=== PATIENT | male | born 1955 | race Caucasian/White ===

== ENCOUNTER 2020-01-11 19:47 | Emergency (ER) | payer BC ==
[2020-01-11] MEDS ORDERED: Cyclobenzaprine 10 MG Tab PO ONE (19:48)
[2020-01-11] MEDS ORDERED: Acetaminophen/HYDROcodone 325-5 MG Tab PO ONE (19:48)
[2020-01-11] MEDS ORDERED: Diphtheria,Pertussis(Acell),Tetanus Vaccine 0.5 ML SDV IM ONE (20:10)
[2020-01-11] MEDS ORDERED: Lidocaine 1% 30 ML SDV INJECT ONE (20:24)
[2020-01-11] MEDS ORDERED: Bacitracin Oint 1 GM U/D Packet TOP ONE (20:24)
--- NOTE | 2020-01-11 20:37 | CR ---
PROCEDURE INFORMATION: Exam: XR Left Finger(s) Exam date and time: 01/11/2020 8:01 PM Age: 64 years old Clinical indication: Pain; Finger(s); Left; Additional info: Laceration, fall TECHNIQUE: Imaging protocol: XR Left fingers. Views: Minimum 2 views. COMPARISON: No relevant prior studies available. FINDINGS: Bones/joints: The bones appear intact. No acute fracture is identified. The joints are normally aligned and articulated. Soft tissues: There is a laceration along the volar aspect of the digit extending along the length of the proximal phalanx to the PIP joint. There are tiny radiopaque foreign bodies along the distribution of the laceration. Additional tiny foreign bodies are seen overlying the soft tissues along the pad of the digit. IMPRESSION: Soft tissue laceration with associated small soft tissue foreign bodies. No acute osseous injury identified.
--- NOTE | 2020-01-11 20:43 | CT ---
PROCEDURE INFORMATION: Exam: CT Cervical Spine Without Contrast Exam date and time: 01/11/2020 8:15 PM Age: 64 years old Clinical indication: Injury or trauma; Fall; Initial encounter; Blunt trauma; Additional info: Fell backwards over retaining wall, upper neck manuel TECHNIQUE: Imaging protocol: Computed tomography images of the cervical spine without contrast. Radiation optimization: All CT scans at this facility use at least one of these dose optimization techniques: automated exposure control; mA and/or kV adjustment per patient size (includes targeted exams where dose is matched to clinical indication); or iterative reconstruction. COMPARISON: No relevant prior studies available. FINDINGS: Tubes, catheters and devices: A pacemaker device is present, and its leads are in appropriate position. Vertebrae: Cervical vertebral morphology and alignment is normal. There is no evidence of acute fracture, dislocation, or subluxation. The vertebral atlantoaxial joint is moderately degenerated. The vertebral facet joints demonstrate moderate degenerative hypertrophy and sclerosis. Discs/Spinal canal/Neural foramina: There is T2 signal loss and degenerative narrowing reflecting disc desiccation and degeneration at all cervical levels. There are small associated osteophytes in the mid and lower cervical levels. There is multilevel mid and lower cervical foraminal narrowing secondary to degenerated facets and uncovertebral osteophytes. Soft tissues: A tiny bubble of gas lies in the right temporal soft tissues, the remaining soft tissues appear normal. Lungs: The visualized portions of the lung apices are normal. Vasculature: There is moderate atherosclerotic calcification of the carotid arteries. IMPRESSION: 1. No sign of cervical injury 2. Diffuse cervical degenerative disc disease and facet osteoarthritis 3. Small (3 mm) bubble of soft tissue gas right temporal fossa,? Etiology
--- NOTE | 2020-01-11 20:48 | CT ---
PROCEDURE INFORMATION: Exam: CT Head Without Contrast Exam date and time: 01/11/2020 8:15 PM Age: 64 years old Clinical indication: Injury or trauma; Fall; Initial encounter; Blunt trauma (contusions or hematomas); Consciousness not specified; Additional info: Fell backwards over retaining wall TECHNIQUE: Imaging protocol: Computed tomography of the head without contrast. Radiation optimization: All CT scans at this facility use at least one of these dose optimization techniques: automated exposure control; mA and/or kV adjustment per patient size (includes targeted exams where dose is matched to clinical indication); or iterative reconstruction. COMPARISON: No relevant prior studies available. FINDINGS: Brain: Cerebral volume and morphology is normal. There are no extraaxial collections, mass effect or hemorrhage. Parenchymal attenuation is normal. Ventricles: Normal. No ventriculomegaly. Bones/joints: The skull is normal. Sinuses: The paranasal sinuses are morphologically normal and free of fluid or mucoperiosteal thickening. Mastoid air cells: The mastoid air cells and middle ears are normally pneumatized. Soft tissues: Small bubbles of gas lie in the soft tissues of the right temporal fossa. There is no sign of foreign body or skin laceration. IMPRESSION: 1. No acute cerebral /cranial abnormalities, no sign of traumatic injury. 2. Minimal right temporal soft tissue gas,? Etiology
[2020-01-11 20:54] LABS: SODIUM,NA 140 mmol/L (136-145)
[2020-01-11 21:04] LABS: ANION GAP 18.1 mEq/L (7-13); CHLORIDE,CL 103 mmol/L (98-107)
[2020-01-11] MEDS ORDERED: Cephalexin 500 MG Cap PO ONE (21:40)
--- NOTE | 2020-01-11 22:04 | EDM.PDOC ---
ED HPI GENERAL MEDICAL PROBLEM - General Chief Complaint: Trauma Stated Complaint: LACERATION ON FINGER Time Seen by Provider: 01/11/20 19:55 Source of Information: Reports: Patient History Limitations: Reports: No Limitations - History of Present Illness INITIAL COMMENTS - FREE TEXT/NARRATIVE: ED ambulatory with c/o laceration to left 4th finger, [employer]. Reports standing on 3rd step of ladder with electric nail gun, Nail got stuck pulling at gun, lost balance fell back wards, caught hand on bent nail, continued to fall backwards over 5 foot retaining wall, Did not lose consciousness. Paddle bat lying against wall "softened fall". No prior head injuries. Not on any type of blood thinner. GCS 15 on arrival. Location: Reports: Neck, Upper Extremity, Left, Lower Extremity, Right Left Finger-Little Pain Score (Numeric/FACES): 7 - Related Data Allergies Allergy/AdvReac Type Severity Reaction Status Date / Time No Known Allergies Allergy Verified 01/11/20 20:09 Home Meds: Home Meds Canagliflozin [Invokana] 300 mg PO DAILY 01/11/20 [History] Insulin Glargine,Hum.Rec.Anlog [Toujeo Solostar] 24 units SQ DAILY 01/11/20 [ History] Omeprazole 20 mg PO DAILY 01/11/20 [History] metFORMIN HCl [Metformin HCl ER] 500 mg PO BID 01/11/20 [History] Past Medical History Gastrointestinal History: Reports: GERD Musculoskeletal History: Reports: Fracture Other Musculoskeletal History: Ankle fx Endocrine/Metabolic History: Reports: Diabetes, Type II Social & Family History - Family History Family Medical History: Noncontributory - Tobacco Use Smoking Status *Q: Never Smoker Second Hand Smoke Exposure: No - Caffeine Use Caffeine Use: Reports: Coffee - Recreational Drug Use Recreational Drug Use: No Review of Systems - Review of Systems Review Of Systems: Comprehensive ROS is negative, except as noted in HPI. ED EXAM, GENERAL - Physical Exam Exam: See Below Exam Limited By: No Limitations General Appearance: Alert, Mild Distress Eye Exam: Bilateral Eye: EOMI, PERRL (4) Ears: Normal External Exam, Normal Canal, Hearing Grossly Normal, Normal TMs Nose: Normal Inspection Throat/Mouth: Normal Inspection Head: No: Facial Swelling, Facial Tenderness Neck: Tender Lateral (mid cercal), Tender Midline (upper) Respiratory/Chest: No Respiratory Distress, Lungs Clear, Normal Breath Sounds Cardiovascular: Normal Peripheral Pulses, Regular Rate, Rhythm, No Edema, No Murmur GI/Abdominal: Normal Bowel Sounds, Soft, Non-Tender. No: Distended, Guarding, Rigid Back Exam: Full Range of Motion, Other (7mm abrasion left medial mid scapula, non tender). No: CVA Tenderness (L), CVA Tenderness (R), Decreased Range of Motion, Paraspinal Tenderness, Vertebral Tenderness Neurological: Alert, Oriented, CN II-XII Intact, Normal Cognition, Normal Gait, No Motor/Sensory Deficits Psychiatric: Normal Affect, Normal Mood Skin Exam: Warm, Wound/Incision (4cm laceration left 5th finger palmar ) ED TRAUMA PROCEDURES - Laceration/Wound Repair Left Ventral Digit - 5th (Baby) Appearance: Superficial (deep), Stellate, Irregular, Mildly Contaminated Distal NVT: Neuro & Vascular Intact Anesthetic Type: Local Local Anesthesia - Lidocaine (Xylocaine): 1% Plain Local Anesthetic Volume: 3cc Skin Prep: Chlorhexidine (Hibiciens), Saline Saline Irrigation (cc's): 125 Exploration/Debridement/Repair: Wound Explored, Explored to Base, Moderate Debridement Closed With: Sutures Suture Size: 4-0 # of Sutures: 13 Suture Size: 4-0 # of Sutures: 1 Repaired With: Vicryl Drain Placement: No Sterile Dressing Applied: Nurse Tetanus Status Addressed: Yes Complications: No Course - Vital Signs Last Recorded V/S: Last Vital Signs Temp 96.5 F L 01/11/20 20:56 Pulse 80 01/11/20 22:15 Resp 14 01/11/20 22:15 BP 190/72 H 01/11/20 22:15 Pulse Ox 98 01/11/20 22:15 - Orders/Labs/Meds Orders: Active Orders 24 hr Category Date Time Status EKG Documentation Completion [RC] STAT Care 01/11/20 19:57 Active Vaccines to be Administered [RC] PER UNIT ROUTINE Care 01/11/20 20:10 Active Labs: Laboratory Tests 01/11/20 01/11/20 01/11/20 Range/Units 20:06 20:06 22:01 WBC 7.6 (5.0-10.0) 10^3/uL RBC 5.15 (4.6-6.2) 10^6/uL Hgb 15.9 (14.0-18.0) g/dL Hct 45.2 (40.0-54.0) % MCV 87.8 (80-100) fL MCH 30.9 (27.0-34.0) pg MCHC 35.2 H (33.0-35.0) g/dL Plt Count 142 L (150-450) 10^3/uL Neut % (Auto) 59.8 (42.2-75.2) % Lymph % (Auto) 29.4 (20.5-50.1) % [place] % (Auto) 7.9 (2-8) % Eos % (Auto) 2.6 (1.0-3.0) % Baso % (Auto) 0.3 (0.0-1.0) % Sodium 140 (136-145) mmol/L Potassium 4.1 (3.5-5.1) mmol/L Chloride 103 (98-107) mmol/L Carbon Dioxide 23 (21-32) mmol/L Anion Gap 18.1 H (7-13) mEq/L BUN 25 H (7-18) mg/dL Creatinine 1.30 (0.70-1.30) mg/dL Est Cr Clr Drug Dosing 59.27 mL/min Estimated GFR (MDRD) 56 BUN/Creatinine Ratio 19.2 (No establ ref range) Glucose 216 H (74-99) mg/dL Calcium 8.5 (8.5-10.1) mg/dL Total Bilirubin 0.5 (0.2-1.0) mg/dL AST 10 L (15-37) U/L ALT 30 (16-63) U/L Alkaline Phosphatase 73 (46-116) U/L Total Protein 6.9 (6.4-8.2) g/dL Albumin 3.9 (3.4-5.0) g/dL Globulin 3.0 Albumin/Globulin Ratio 1.3 Urine Color Yellow (YELLOW) Urine Appearance Slightly cloudy (CLEAR) Urine pH 6.5 (5.0-9.0) Ur Specific [place] 1.020 (1.005-1.030) Urine Protein Negative (NEGATIVE) Urine Glucose (UA) 500 H (NEGATIVE) Urine Ketones Negative (NEGATIVE) Urine Occult Blood Negative (NEGATIVE) Urine Nitrite Negative (NEGATIVE) Urine Bilirubin Negative (NEGATIVE) Urine Urobilinogen 0.2 (0.2-1.0) mg/dL Ur Leukocyte Esterase Negative (NEGATIVE) Urine RBC Not seen /HPF Urine WBC 0-5 (0-5/HPF) /HPF Ur Epithelial Cells Few (NOT SEEN) /HPF Amorphous Sediment Few (NOT SEEN) /HPF Urine Bacteria Rare (0-FEW/HPF) /HPF Urine Mucus Few H (NOT SEEN) /LPF Ethyl Alcohol < 3 (0) mg/dL Meds: Medications Discontinued Medications Generic Name Dose Route Start Last Admin Trade Name Tanner PRN Reason Stop Dose Admin Hydrocodone Bitart/Acetaminophen Confirm 01/11/20 22:08 01/11/20 22:19 [place] 325-5 Mg Administered 01/11/20 22:09 Not Given Dose 2 tab .ROUTE .STK-MED ONE Bacitracin 1 dose 01/11/20 20:24 01/11/20 20:36 Bacitracin Oint 1 Gm TOP 01/11/20 20:25 1 dose ONETIME ONE Administration Cephalexin 500 mg 01/11/20 21:40 01/11/20 21:46 Keflex PO 01/11/20 21:41 500 mg ONETIME ONE Administration Cyclobenzaprine HCl Confirm 01/11/20 22:08 01/11/20 22:18 Flexeril Administered 01/11/20 22:09 Not Given Dose 20 mg .ROUTE .STK-MED ONE Diphtheria/Tetanus/Acell Pertussis 0.5 ml 01/11/20 20:10 01/11/20 20:37 Adacel IM 01/11/20 20:11 0.5 ml .ONCE ONE Administration Lidocaine HCl 30 ml 01/11/20 20:24 01/11/20 20:37 Xylocaine-Mpf 1% INJECT 01/11/20 20:25 30 ml ONETIME ONE Administration - Re-Assessments/Exams Free Text/Narrative Re-Assessment/Exam: 20[address] C spine cleared by CT, C collar released, patient reported felt better with support. C collar left on for comfort. Remains alert talkative complete recall of incident. No c/o headache. Gcs 15. 01/12/20 03:42 Departure - Departure Time of Disposition: 21:59 Disposition: Home, Self-Care 01 Condition: Good Clinical Impression: Abrasion, right ankle, initial encounter Fall Qualifiers: Encounter type: initial encounter Qualified Code(s): W19.XXXA - Unspecified fall, initial encounter Contusion Qualifiers: Encounter type: initial encounter Contusion area: thoracic wall Contusion of thoracic wall detail: back wall of thorax Laterality: left Qualified Code(s): S20.222A - Contusion of left back wall of thorax, initial encounter Finger laceration Qualifiers: Encounter type: initial encounter Finger: little finger Damage to nail status: without damage Foreign body presence: without foreign body Laterality: left Qualified Code(s): S61.217A - Laceration without foreign body of left little finger without damage to nail, initial encounter - Discharge Information *PRESCRIPTION DRUG MONITORING PROGRAM REVIEWED*: No *COPY OF PRESCRIPTION DRUG MONITORING REPORT IN PATIENT KAYLI: No Instructions: Head Injury, Adult, Laceration Care, Adult, Sutured Wound Care, [id number] Forms: ED Department Discharge Additional Instructions: tylenol 650mg every 4 hours as needed for omoderate discomfort hydrocodone 5/325 one every 6 hours as needed for severe discomfort keflex 500mg one three times daily for one week flexeril 10mg one- half to one every 8 hours as needed for spasm clinic recheck on Saturday elevate hand keep clean and dry, wash with soap and water twice daily head injury instructions urgent follow up and confusion or weakness or change in behavior. Sepsis Event Note - Evaluation Sepsis Screening Result: No Definite Risk - Focused Exam Vital Signs: Vital Signs Temp Pulse Resp BP Pulse Ox 01/11/20 22:15 80 14 190/72 H 98 01/11/20 21:34 74 14 161/66 H 97 01/11/20 20:56 96.5 F L 91 14 159/64 H 97 01/11/20 19:53 96.9 F 70 16 104/52 L 98 Date Exam was Performed: 01/12/20 Time Exam was Performed: 03:21 - My Orders Last 24 Hours: My Active Orders 01/11/20 19:57 EKG Documentation Completion [RC] STAT 01/11/20 20:10 Vaccines to be Administered [RC] PER UNIT ROUTINE - Assessment/Plan Last 24 Hours: My Active Orders 01/11/20 19:57 EKG Documentation Completion [RC] STAT 01/11/20 20:10 Vaccines to be Administered [RC] PER UNIT ROUTINE
[2020-01-11] MEDS ORDERED: Acetaminophen/HYDROcodone 325-5 MG Tab ONE (22:08)
[2020-01-11] MEDS ORDERED: Cyclobenzaprine 10 MG Tab ONE (22:08)
== END 2020-01-11 22:22 | disposition home or self-care (01) ==
LOC: DL.ED 19:47
DX: S61.217A Laceration without foreign body of left little finger without damage to nail, initial encounter (principal); S20.222A Contusion of left back wall of thorax, initial encounter; S90.511A Abrasion, right ankle, initial encounter; K21.9 Gastro-esophageal reflux disease without esophagitis; E11.9 Type 2 diabetes mellitus without complications; Z79.4 Long term (current) use of insulin; Z79.899 Other long term (current) drug therapy; Z23 Encounter for immunization; W29.4XXA Contact with nail gun, initial encounter
CPT/HCPCS: 12002; 36415; 70450; 72125; 73140; 80053; 80307; 81001; 85025; 90471; 90715; 93005; 99284; A9270; J2001

== ENCOUNTER 2020-08-15 17:36 | Emergency (ER) | payer MEDICARE, BC ==
[2020-08-15] MEDS ORDERED: Sodium Chloride 0.9% 10 ML Syringe FLUSH PRN (17:39)
[2020-08-15] MEDS ORDERED: Aspirin 81 MG Tab.Chew PO ONE (17:41)
--- NOTE | 2020-08-15 17:42 | EDM.PDOC ---
<Darío Powers - Last Filed: 08/15/20 19:04> ED HPI GENERAL MEDICAL PROBLEM - General Chief Complaint: Chest Pain Stated Complaint: TROUBLE BREATHING, BOTH ARMS ACHING Time Seen by Provider: 08/15/20 17:42 Source of Information: Reports: Patient, RN, RN Notes Reviewed History Limitations: Reports: No Limitations - History of Present Illness INITIAL COMMENTS - FREE TEXT/NARRATIVE: 65 y/o M c/o Cp since 3 pm today. Pt had just had luch with his when pain began. Pain is center chest, pressure in nature, 7/10 and non radiating. Pt also experiencing bilateral heaviness in upper arms. Hx of type II diabetes. No previous heart issues. Pt took two baby aspirin before coming to hospital. Denies hull, vision problems, sob, n/v, abd pn, difficulty voiding, extremity pain, fever, cough, chills, drugs, etoh. 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) Anterior Chest Pain Score (Numeric/FACES): 8 - Related Data Allergies Allergy/AdvReac Type Severity Reaction Status Date / Time No Known Allergies Allergy Verified 08/15/20 18:19 Home Meds: Home Meds Canagliflozin [Invokana] 300 mg PO DAILY 01/11/20 [History] Insulin Glargine,Hum.Rec.Anlog [Touky[place] Solostar] 27 units SQ DAILY 01/11/20 [History] Omeprazole 20 mg PO DAILY 01/11/20 [History] metFORMIN HCl [Metformin HCl ER] 1,000 mg PO DAILY 01/11/20 [History] lisinopriL [Prinivil] 2.5 mg PO DAILY 08/15/20 [History] Past Medical History Gastrointestinal History: Reports: GERD Musculoskeletal History: Reports: Fracture Other Musculoskeletal History: Ankle fx Endocrine/Metabolic History: Reports: Diabetes, Type II Social & Family History - Family History Family Medical History: No Pertinent Family History - Caffeine Use Caffeine Use: Reports: Coffee - Living Situation & Occupation Living situation: Reports: with Significant Other ED ROS GENERAL - Review of Systems Review Of Systems: Comprehensive ROS is negative, except as noted in HPI. ED EXAM, GENERAL - Physical Exam Exam: See Below Exam Limited By: No Limitations General Appearance: Alert, WD/WN, No Apparent Distress, Anxious Eye Exam: Bilateral Eye: Normal Inspection Nose: Normal Inspection, Normal Mucosa, No Blood Throat/Mouth: Normal Inspection, Normal Lips, Normal Teeth, Normal Gums, Normal Oropharynx, Normal Voice, No Airway Compromise Head: Atraumatic, Normocephalic Neck: Normal Inspection, Supple, Non-Tender, Full Range of Motion Respiratory/Chest: No Respiratory Distress, Lungs Clear, Normal Breath Sounds, No Accessory Muscle Use, Chest Non-Tender Cardiovascular: Normal Peripheral Pulses, Regular Rate, Rhythm, No Edema, No Gallop, No JVD, No Murmur, No Rub GI/Abdominal: Normal Bowel Sounds, Soft, Non-Tender, No Organomegaly, No Distention, No Abnormal Bruit, No Mass (Male) Exam: Deferred Rectal (Males) Exam: Deferred Back Exam: Normal Inspection. No: CVA Tenderness (L), CVA Tenderness (R), Vertebral Tenderness Extremities: Normal Inspection, Non-Tender, No Pedal Edema Neurological: Alert, Oriented, CN II-XII Intact, Normal Cognition, Normal Gait, No Motor/Sensory Deficits Psychiatric: Normal Affect, Anxious Skin Exam: Warm, Dry, Intact, Normal Color, No Rash #1 Interpretation EKG Date: 08/15/20 Time: 17:50 Rhythm: Other (SR) Rate (Beats/Min): 84 Capac: Normal P-Wave: Present QRS: Other (LVH with secondary repol. abnrm.) ST-T: Normal QT: Normal Comparison: NA - No Prior EKG Course - Re-Assessments/Exams Free Text/Narrative Re-Assessment/Exam: 08/15/2020 18:35 Pt partially improved with NTG, no acute ischemic EKG changes, and negative Troponin. Plan to keep pt as extended ER for chest pain r/o. 08/15/20 19:00 Care of pt transferred to Braulio HERNANDEZ at shift change. Departure - Departure Disposition: DC/Tfer to [facility] 02 Clinical Impression: NSTEMI (non-ST elevated myocardial infarction), Elevated troponin I level Forms: Interfacility Transfer EMTALA Care Plan Goals: Discussed the patient's history, examination, initial lab/EKG results and repeat lab/EKG results with Dr. Watson. Dr. Watson accepted the patient for continued evaluation and management at [facility] in [place]. <Braulio Vance M - Last Filed: 08/15/20 23:20> Course - Vital Signs Last Recorded V/S: Last Vital Signs Temp 36.3 C 08/15/20 22:59 Pulse 55 L 08/15/20 22:59 Resp 16 08/15/20 22:59 BP 116/56 L 08/15/20 22:59 Pulse Ox 97 08/15/20 22:59 - Orders/Labs/Meds Orders: Active Orders 24 hr Category Date Time Status EKG 12 Lead [EKG Documentation Completion] [RC] ONETIME Care 08/15/20 22:00 Active EKG 12 Lead [EKG Documentation Completion] [RC] STAT Care 08/15/20 17:39 Active Peripheral IV Care [RC] . DIRECTED Care 08/15/20 17:39 Active CORONAVIRUS COVID-19 MICHAELA [MOLEC] Urgent Lab 08/15/20 23:04 Ordered Heparin Sodium/0.45% NaCl [Heparin 25,000 Units in 1/2 Med 08/15/20 23:12 Ordered NS 500 ML] 25,000 units in 500 ml IV ONETIME Nitroglycerin [Nitrostat] Med 08/15/20 17:42 Active 0.4 mg SL Q5M PRN Sodium Chloride 0.9% [Saline Flush] Med 08/15/20 17:39 Active 10 ml FLUSH ASDIRECTED PRN Peripheral IV Insertion Adult [OM.PC] Stat Oth 08/15/20 17:39 Ordered Medication Orders Heparin Sodium/Sodium Chloride (Heparin 25,000 Units In 1/2 Ns 500 Ml) 25,000 units in 500 mls @ 20.14 mls/hr IV ONETIME ONE Stop: 08/17/20 00:01 Nitroglycerin (Nitrostat) 0.4 mg SL Q5M PRN PRN Reason: Chest Pain Last Admin: 08/15/20 18:22 Dose: 0.4 mg Documented by: Admin: 08/15/20 18:09 Dose: 0.4 mg Documented by: Admin: 08/15/20 18:00 Dose: 0.4 mg Documented by: ELOISE Sodium Chloride (Saline Flush) 10 ml FLUSH ASDIRECTED PRN PRN Reason: Keep Vein Open Last Admin: 08/15/20 17:45 Dose: 10 ml Documented by: WARREN Labs: Laboratory Tests 08/15/20 08/15/20 08/15/20 Range/Units 17:45 17:45 17:45 WBC 7.8 (5.0-10.0) 10^3/uL RBC 5.14 (4.6-6.2) 10^6/uL Hgb 16.0 (14.0-18.0) g/dL Hct 44.7 (40.0-54.0) % MCV 87.0 (80-100) fL MCH 31.1 (27.0-34.0) pg MCHC 35.8 H (33.0-35.0) g/dL Plt Count 132 L (150-450) 10^3/uL Neut % (Auto) 72.9 (42.2-75.2) % Lymph % (Auto) 19.3 L (20.5-50.1) % [place] % (Auto) 6.1 (2-8) % Eos % (Auto) 1.3 (1.0-3.0) % Baso % (Auto) 0.4 (0.0-1.0) % PT 9.8 (9.0-12.0) SEC INR 1.0 (0.9-1.2) APTT 26.1 (22.0-34.0) SEC D-Dimer, Quantitative < 100 (0-400) ng/mL Sodium 138 (136-145) mmol/L Potassium 3.9 (3.5-5.1) mmol/L Chloride 100 (98-107) mmol/L Carbon Dioxide 23 (21-32) mmol/L Anion Gap 18.9 H (7-13) mEq/L BUN 21 H (7-18) mg/dL Creatinine 1.19 (0.70-1.30) mg/dL Est Cr Clr Drug Dosing TNP Estimated GFR (MDRD) > 60 BUN/Creatinine Ratio 17.6 (No establ ref range) Glucose 279 H (74-99) mg/dL Calcium 8.7 (8.5-10.1) mg/dL Total Bilirubin 0.5 (0.2-1.0) mg/dL AST 11 L (15-37) U/L ALT 31 (16-63) U/L Alkaline Phosphatase 65 (46-116) U/L Troponin I 0.021 (0.000-0.056) ng/mL B-Natriuretic Peptide 50 (0-100) pg/ml Total Protein 7.4 (6.4-8.2) g/dL Albumin 4.2 (3.4-5.0) g/dL Globulin 3.2 Albumin/Globulin Ratio 1.3 Amylase 40 (25-115) U/L Lipase 111 (73-393) U/L 08/15/20 Range/Units 22:26 WBC (5.0-10.0) 10^3/uL RBC (4.6-6.2) 10^6/uL Hgb (14.0-18.0) g/dL Hct (40.0-54.0) % MCV (80-100) fL MCH (27.0-34.0) pg MCHC (33.0-35.0) g/dL Plt Count (150-450) 10^3/uL Neut % (Auto) (42.2-75.2) % Lymph % (Auto) (20.5-50.1) % [place] % (Auto) (2-8) % Eos % (Auto) (1.0-3.0) % Baso % (Auto) (0.0-1.0) % PT (9.0-12.0) SEC INR (0.9-1.2) APTT (22.0-34.0) SEC D-Dimer, Quantitative (0-400) ng/mL Sodium (136-145) mmol/L Potassium (3.5-5.1) mmol/L Chloride (98-107) mmol/L Carbon Dioxide (21-32) mmol/L Anion Gap (7-13) mEq/L BUN (7-18) mg/dL Creatinine (0.70-1.30) mg/dL Est Cr Clr Drug Dosing Estimated GFR (MDRD) BUN/Creatinine Ratio (No establ ref range) Glucose (74-99) mg/dL Calcium (8.5-10.1) mg/dL Total Bilirubin (0.2-1.0) mg/dL AST (15-37) U/L ALT (16-63) U/L Alkaline Phosphatase (46-116) U/L Troponin I 0.540 H* (0.000-0.056) ng/mL B-Natriuretic Peptide (0-100) pg/ml Total Protein (6.4-8.2) g/dL Albumin (3.4-5.0) g/dL Globulin Albumin/Globulin Ratio Amylase (25-115) U/L Lipase (73-393) U/L Meds: Medications Generic Name Dose Route Start Last Admin Trade Name Freq PRN Reason Stop Dose Admin Heparin Sodium/Sodium Chloride 25,000 units in 500 mls @ 20.14 mls/hr 08/15/20 23:12 Heparin 25,000 Units In 1/2 Ns 500 Ml IV 08/17/20 00:01 ONETIME ONE 12 UNITS/KG/HR Nitroglycerin 0.4 mg 08/15/20 17:42 08/15/20 18:22 Nitrostat SL 0.4 mg Q5M PRN Administration Chest Pain Sodium Chloride 10 ml 08/15/20 17:39 08/15/20 17:45 Saline Flush FLUSH 10 ml ASDIRECTED PRN Administration Keep Vein Open Discontinued Medications Generic Name Dose Route Start Last Admin Trade Name Freq PRN Reason Stop Dose Admin Aspirin 162 mg 08/15/20 17:41 08/15/20 17:57 Aspirin PO 08/15/20 17:42 162 mg ONETIME ONE Administration Aspirin Confirm 08/15/20 17:58 08/15/20 18:05 Aspirin Administered 08/15/20 17:59 Not Given Dose 81 mg .ROUTE .STK-MED ONE Heparin Sodium (Porcine) 4,000 units 08/15/20 23:11 Heparin Sodium IVPUSH 08/15/20 23:12 .BOLUS ONE Departure - Departure Time of Disposition: 23:18 Reason for Transfer *Q: Other Condition: Fair Sepsis Event Note (ED) - Focused Exam Vital Signs: Vital Signs Temp Pulse Resp BP BP Pulse Ox 08/15/20 22:59 36.3 C 55 L 16 116/56 L 97 08/15/20 22:00 36.4 C 55 L 16 111/52 L 97 08/15/20 20:55 36.2 C 64 16 118/61 97 08/15/20 20:03 36.6 C 67 16 122/56 L 98 08/15/20 18:48 36.6 C 77 16 131/66 96 08/15/20 18:22 118/58 L 08/15/20 18:09 122/61 08/15/20 18:00 163/76 H 08/15/20 17:38 36.4 C 71 16 182/82 H 95 - My Orders Last 24 Hours: My Active Orders 08/15/20 23:04 CORONAVIRUS COVID-19 MICHAELA [MOLEC] Urgent 08/15/20 23:12 Heparin Sodium/0.45% NaCl [Heparin 25,000 Units in 1/2 NS 500 ML] 25,000 units in 500 ml IV ONETIME - Assessment/Plan Last 24 Hours: My Active Orders 08/15/20 23:04 CORONAVIRUS COVID-19 MICHAELA [MOLEC] Urgent 08/15/20 23:12 Heparin Sodium/0.45% NaCl [Heparin 25,000 Units in 1/2 NS 500 ML] 25,000 units in 500 ml IV ONETIME
[2020-08-15] MEDS ORDERED: Aspirin 81 MG Tab.Chew ONE (17:58)
[2020-08-15] MEDS: Nitroglycerin 0.4 MG Tab.SL SL PRN ×3 (18:00→18:22)
[2020-08-15 18:08] LABS: PTT,PARTIAL THROMBOPLSTIN TIME 26.1 SEC (22.0-34.0)
[2020-08-15 18:14] LABS: ANION GAP 18.9 mEq/L (7-13); CHLORIDE,CL 100 mmol/L (98-107); SODIUM,NA 138 mmol/L (136-145)
--- NOTE | 2020-08-15 18:41 | CR ---
PROCEDURE INFORMATION: Exam: XR Chest, 1 View Exam date and time: 08/15/2020 6:32 PM Age: 65 years old Clinical indication: Other: Chest pain TECHNIQUE: Imaging protocol: XR of the chest Views: 1 view. COMPARISON: No relevant prior studies available. FINDINGS: Lungs: Unremarkable. No consolidation. Mild left basilar atelectasis. Pleural space: Unremarkable. No pleural effusion. No pneumothorax. Heart/Mediastinum: Unremarkable. No cardiomegaly. Bones/joints: Unremarkable. IMPRESSION: Mild subsegmental atelectasis in the left base. Otherwise unremarkable chest
[2020-08-15] MEDS ORDERED: Heparin Sodium 5,000 Units/ML Vial IVPUSH ONE (23:11)
[2020-08-15] MEDS ORDERED: Heparin Sodium/0.45% NaCl 25,000 UNITS/500 ML BAG IV ONE (23:12)
== END 2020-08-16 00:18 ==
LOC: DL.ED 17:36
DX: I21.4 Non-ST elevation (NSTEMI) myocardial infarction (principal); R79.89 Other specified abnormal findings of blood chemistry; K21.9 Gastro-esophageal reflux disease without esophagitis; E11.9 Type 2 diabetes mellitus without complications; Z79.4 Long term (current) use of insulin; Z79.899 Other long term (current) drug therapy; Z20.822 Contact with and (suspected) exposure to COVID-19
CPT/HCPCS: 36415; 71045; 80053; 82150; 83690; 83880; 84484; 85025; 85379; 85610; 85730; 93005; 93010; 96365; 99285; A9270; J1644; U0002

== ENCOUNTER 2020-08-22 13:28 | Emergency (ER) | payer MEDICARE, BC ==
[2020-08-22 14:17] LABS: PTT,PARTIAL THROMBOPLSTIN TIME 26.8 SEC (22.0-34.0)
--- NOTE | 2020-08-22 14:22 | EDM.PDOC ---
<Ludmila Mckinney - Last Filed: 08/23/20 01:24> ED HPI GENERAL MEDICAL PROBLEM - General Stated Complaint: HEART SURGERY LAST SATURDAY DOESN'T FEEL RIGHT Time Seen by Provider: 08/22/20 14:05 - Related Data Allergies Allergy/AdvReac Type Severity Reaction Status Date / Time No Known Allergies Allergy Verified 08/15/20 18:19 Home Meds: Home Meds Canagliflozin [Invokana] 300 mg PO DAILY 01/11/20 [History] Insulin Glargine,Hum.Rec.Anlog [Toujeo Solostar] 27 units SQ DAILY 01/11/20 [History] Omeprazole 20 mg PO DAILY 01/11/20 [History] metFORMIN HCl [Metformin HCl ER] 1,000 mg PO DAILY 01/11/20 [History] Pravastatin Sodium [Pravachol] 20 mg PO DAILY 08/15/20 [History] lisinopriL [Prinivil] 2.5 mg PO DAILY 08/15/20 [History] Course - Re-Assessments/Exams Free Text/Narrative Re-Assessment/Exam: Troponin unchanged. No significant change in EKG. Continues to deny chest pain or SOB. Admits some anxiety when noticing skipped beat and on mccauley alone at its onset. Follow up with PCP on Saturday. Cardilogy in one month. Recommended sooner follow up with Cardio if able to reschedule. Departure - Departure Time of Disposition: 18:24 Disposition: Home, Self-Care 01 Condition: Good Clinical Impression: Palpitations - Discharge Information *PRESCRIPTION DRUG MONITORING PROGRAM REVIEWED*: No *COPY OF PRESCRIPTION DRUG MONITORING REPORT IN PATIENT KAYLI: No Instructions: Palpitations, [id number] Referrals: Cain Nguyễn NP [Primary Care Provider] - Forms: ED Department Discharge Additional Instructions: light activity clinic follow up this week cardiology follow up urgent follow up if chest pain shortness of breath, sweating continue home medications limit caffeine intake <Maria C Martin - Last Filed: 08/23/20 16:31> ED HPI GENERAL MEDICAL PROBLEM - General Source of Information: Reports: Patient, Old Records, RN, RN Notes Reviewed History Limitations: Reports: No Limitations - History of Present Illness INITIAL COMMENTS - FREE TEXT/NARRATIVE: Patient presents to the ED via personal vehicle with complaints of heart palpi tations. The patient reports he underwent a cardiac stent placement six days ago, 08/16/20, at [facility] in [place]. He states the procedure was without complication and he has been feeling well since discharge from the hospital on __. The patient states he was ice fishing this morning and felt "..off." He then noticed his heart "...felt like it was skipping a beat" after he sat down after lunch. He denies any syncopal events, vision changes, ches pain/pressure, shortness of breath, dyspepsia, nausea, vomiting, or diarrhea. He has not taken any PRN medications for this problem but does note he has started several new medications since discharge from the hospital. The patient denies tobacco or recreational drug use; he does attest to alcohol use with a last drink two days ago 08/20/20. Past Medical History HEENT History: Reports: None Cardiovascular History: Reports: Other (See Below) Other Cardiovascular History: NSTEMI last week (08/15/20) with stent Respiratory History: Reports: None Gastrointestinal History: Reports: GERD Genitourinary History: Reports: None Musculoskeletal History: Reports: Fracture Other Musculoskeletal History: Ankle fx Neurological History: Reports: None Psychiatric History: Reports: None Endocrine/Metabolic History: Reports: Diabetes, Type II Hematologic History: Reports: None Immunologic History: Reports: None Oncologic (Cancer) History: Reports: None Dermatologic History: Reports: None Social & Family History - Family History Family Medical History: No Pertinent Family History - Tobacco Use Tobacco Use Status *Q: Never Tobacco User - Caffeine Use Caffeine Use: Reports: Coffee - Recreational Drug Use Recreational Drug Use: No - Living Situation & Occupation Living situation: Reports: with Significant Other ED ROS GENERAL - Review of Systems Review Of Systems: Comprehensive ROS is negative, except as noted in HPI. ED EXAM, GENERAL - Physical Exam Exam: See Below Exam Limited By: No Limitations General Appearance: Alert, No Apparent Distress Eye Exam: Bilateral Eye: EOMI, Normal Inspection, PERRL (5mm) Throat/Mouth: Normal Inspection, Normal Voice, No Airway Compromise Head: Atraumatic, Normocephalic Neck: Normal Inspection, Supple, Non-Tender, Full Range of Motion Respiratory/Chest: No Respiratory Distress, Lungs Clear, Normal Breath Sounds, No Accessory Muscle Use, Chest Non-Tender Cardiovascular: Regular Rate, Rhythm, No Edema, No Gallop, No JVD, No Rub, Systolic Murmur (3/6; Loudest over the aortic area, no radiation into the carotid arteries) Peripheral Pulses: 2+: Radial (L), Radial (R) GI/Abdominal: Normal Bowel Sounds, Soft, Non-Tender, No Distention, No Mass, Pelvis Stable Back Exam: Normal Inspection, Full Range of Motion Extremities: Normal Inspection, Normal Range of Motion, Non-Tender, No Pedal Edema, Normal Capillary Refill Neurological: Alert, Oriented, CN II-XII Intact, Normal Cognition, Normal Gait, No Motor/Sensory Deficits Psychiatric: Normal Affect, Normal Mood Skin Exam: Warm, Dry, Intact, Normal Color, Rash (Rosecea-like rash noted bilateral cheeks and nose). No: Ecchymosis, Erythema, Increased Warmth, Jaundice, Mottled, Pallor, Petechiae #1 Interpretation EKG Date: 08/22/20 Time: 13:38 Rhythm: NSR Rate (Beats/Min): 99 [place]: Normal P-Wave: Present QRS: Other (Repolarization in II and AVF) ST-T: Normal QT: Normal Comparison: No Change EKG Interpretation Comments: NSR: No evidence of acute ischemia Course - Vital Signs Last Recorded V/S: Last Vital Signs Temp 98.8 F 08/22/20 15:18 Pulse 66 08/22/20 15:18 Resp 16 08/22/20 15:18 BP 136/67 08/22/20 15:18 Pulse Ox 96 08/22/20 15:18 - Orders/Labs/Meds Labs: Laboratory Tests 08/22/20 08/22/20 08/22/20 Range/Units 13:45 13:45 13:45 WBC 8.3 (5.0-10.0) 10^3/uL RBC 5.40 (4.6-6.2) 10^6/uL Hgb 16.8 (14.0-18.0) g/dL Hct 46.6 (40.0-54.0) % MCV 86.3 (80-100) fL MCH 31.1 (27.0-34.0) pg MCHC 36.1 H (33.0-35.0) g/dL Plt Count 136 L (150-450) 10^3/uL Neut % (Auto) 64.4 (42.2-75.2) % Lymph % (Auto) 27.3 (20.5-50.1) % Buchanan % (Auto) 5.9 (2-8) % Eos % (Auto) 2.2 (1.0-3.0) % Baso % (Auto) 0.2 (0.0-1.0) % PT 10.3 (9.0-12.0) SEC INR 1.1 (0.9-1.2) APTT 26.8 (22.0-34.0) SEC Sodium 138 (136-145) mmol/L Potassium 3.7 (3.5-5.1) mmol/L Chloride 101 (98-107) mmol/L Carbon Dioxide 26 (21-32) mmol/L Anion Gap 14.7 H (7-13) mEq/L BUN 24 H (7-18) mg/dL Creatinine 1.13 (0.70-1.30) mg/dL Est Cr Clr Drug Dosing 67.29 mL/min Estimated GFR (MDRD) > 60 BUN/Creatinine Ratio 21.2 (No establ ref range) Glucose 167 H (74-99) mg/dL Lactic Acid (0.4-2.0) mmol/L Calcium 9.3 (8.5-10.1) mg/dL Total Bilirubin 1.0 (0.2-1.0) mg/dL AST 14 L (15-37) U/L ALT 38 (16-63) U/L Alkaline Phosphatase 69 (46-116) U/L Troponin I 0.048 (0.000-0.056) ng/mL B-Natriuretic Peptide 31 (0-100) pg/ml Total Protein 7.8 (6.4-8.2) g/dL Albumin 4.5 (3.4-5.0) g/dL Globulin 3.3 Albumin/Globulin Ratio 1.4 08/22/20 08/22/20 Range/Units 13:45 17:50 WBC (5.0-10.0) 10^3/uL RBC (4.6-6.2) 10^6/uL Hgb (14.0-18.0) g/dL Hct (40.0-54.0) % MCV (80-100) fL MCH (27.0-34.0) pg MCHC (33.0-35.0) g/dL Plt Count (150-450) 10^3/uL Neut % (Auto) (42.2-75.2) % Lymph % (Auto) (20.5-50.1) % Buchanan % (Auto) (2-8) % Eos % (Auto) (1.0-3.0) % Baso % (Auto) (0.0-1.0) % PT (9.0-12.0) SEC INR (0.9-1.2) APTT (22.0-34.0) SEC Sodium (136-145) mmol/L Potassium (3.5-5.1) mmol/L Chloride (98-107) mmol/L Carbon Dioxide (21-32) mmol/L Anion Gap (7-13) mEq/L BUN (7-18) mg/dL Creatinine (0.70-1.30) mg/dL Est Cr Clr Drug Dosing mL/min Estimated GFR (MDRD) BUN/Creatinine Ratio (No establ ref range) Glucose (74-99) mg/dL Lactic Acid 1.9 (0.4-2.0) mmol/L Calcium (8.5-10.1) mg/dL Total Bilirubin (0.2-1.0) mg/dL AST (15-37) U/L ALT (16-63) U/L Alkaline Phosphatase (46-116) U/L Troponin I 0.049 (0.000-0.056) ng/mL B-Natriuretic Peptide (0-100) pg/ml Total Protein (6.4-8.2) g/dL Albumin (3.4-5.0) g/dL Globulin Albumin/Globulin Ratio - Re-Assessments/Exams Free Text/Narrative Re-Assessment/Exam: 08/22/20 CBC and CMP unremarkable for acute processes. Troponin WNL, but slightly elevated at 0.048. Will transfer patient to extended stay ED and repeat Troponin and EKG in three hours. Patient verbalized understanding and agreement with the plan of care. 1 Sepsis Event Note (ED) - Evaluation Sepsis Screening Result: No Definite Risk
[2020-08-22 14:24] LABS: ANION GAP 14.7 mEq/L (7-13); CHLORIDE,CL 101 mmol/L (98-107); SODIUM,NA 138 mmol/L (136-145)
== END 2020-08-22 18:45 | disposition home or self-care (01) ==
LOC: DL.ED 13:28
DX: R00.2 Palpitations (principal); E11.9 Type 2 diabetes mellitus without complications; K21.9 Gastro-esophageal reflux disease without esophagitis; Z79.899 Other long term (current) drug therapy; Z79.4 Long term (current) use of insulin
CPT/HCPCS: 36415; 80053; 83605; 83880; 84484; 85025; 85610; 85730; 93005; 99285-25

== ENCOUNTER 2020-09-07 08:48 | Emergency (ER) | payer MEDICARE, BC ==
--- NOTE | 2020-09-07 08:53 | EDM.PDOC ---
ED HPI GENERAL MEDICAL PROBLEM - General Chief Complaint: Upper Extremity Injury/Pain Stated Complaint: BROKEN LEFT THUMB Time Seen by Provider: 09/07/20 08:50 Source of Information: Reports: Patient, RN, RN Notes Reviewed History Limitations: Reports: No Limitations - History of Present Illness INITIAL COMMENTS - FREE TEXT/NARRATIVE: Pt presents to ER by POV with c/o injury to left thumb. Pt states he caught his left thumb on an ice auger and it cut the thumb, and either dislocated or broke the bone. He denies any other injury. States his last Tetanus vaccine was just a year or so ago. Onset: Today, Sudden Duration: Constant Location: Reports: Upper Extremity, Left Quality: Reports: Ache Severity: Moderate Improves with: Reports: None Worsens with: Reports: Movement Associated Symptoms: Reports: No Other Symptoms - Related Data Allergies Allergy/AdvReac Type Severity Reaction Status Date / Time No Known Allergies Allergy Verified 09/07/20 09:01 Home Meds: Home Meds Canagliflozin [Invokana] 300 mg PO DAILY 01/11/20 [History] Insulin Glargine,Hum.Rec.Anlog [Toujeo Solostar] 27 units SQ DAILY 01/11/20 [History] Omeprazole 20 mg PO DAILY 01/11/20 [History] metFORMIN HCl [Metformin HCl ER] 1,000 mg PO DAILY 01/11/20 [History] Pravastatin Sodium [Pravachol] 20 mg PO DAILY 08/15/20 [History] lisinopriL [Prinivil] 2.5 mg PO DAILY 08/15/20 [History] Past Medical History HEENT History: Reports: None Cardiovascular History: Reports: CAD, ID, Stents, Other (See Below) Other Cardiovascular History: NSTEMI last week (08/15/20) with stent Respiratory History: Reports: None Gastrointestinal History: Reports: GERD Genitourinary History: Reports: None Musculoskeletal History: Reports: Fracture Other Musculoskeletal History: Ankle fx Neurological History: Reports: None Psychiatric History: Reports: None Endocrine/Metabolic History: Reports: Diabetes, Type II Hematologic History: Reports: None Immunologic History: Reports: None Oncologic (Cancer) History: Reports: None Dermatologic History: Reports: None Social & Family History - Family History Family Medical History: No Pertinent Family History - Caffeine Use Caffeine Use: Reports: Coffee - Living Situation & Occupation Living situation: Reports: with Significant Other Occupation: Retired Review of Systems - Review of Systems Review Of Systems: Comprehensive ROS is negative, except as noted in HPI. ED EXAM, GENERAL - Physical Exam Exam: See Below Exam Limited By: No Limitations General Appearance: Alert, WD/WN, No Apparent Distress Head: Atraumatic, Normocephalic Neck: Normal Inspection Respiratory/Chest: No Respiratory Distress Cardiovascular: Normal Peripheral Pulses Extremities: Normal Capillary Refill, Other (Left thumb with laceration and obvious angulated deformity, no active bleeding, distal sensation and capillary refill intact.) Neurological: Alert, Oriented, No Motor/Sensory Deficits Psychiatric: Normal Mood Skin Exam: Warm, Dry ED TRAUMA EXTREMITY PROCEDURES - Joint Reduction Left Fingers Sedation: Digital Block Local Anesthesia - Lidocaine (Xylocaine): 1% Plain Local Anesthetic Volume: 4cc Pre-Procedure NV Status: Normal Post-Procedure NV Status: Normal Technique: Traction/Counter Traction Number of Attempts: 2 Post-Reduction Imaging: Unacceptably Reduced, No Fracture Seen Joint Reduction Complications: No Course - Vital Signs Last Recorded V/S: Last Vital Signs Temp 98.1 F 09/07/20 09:02 Pulse 89 09/07/20 09:02 Resp 18 09/07/20 09:02 BP 125/60 09/07/20 09:02 Pulse Ox 99 09/07/20 09:02 - Orders/Labs/Meds Orders: Active Orders 24 hr Category Date Time Status Peripheral IV Care [RC] . DIRECTED Care 09/07/20 08:58 Active Sodium Chloride 0.9% [Saline Flush] Med 09/07/20 08:58 Active 10 ml FLUSH ASDIRECTED PRN Peripheral IV Insertion Adult [OM.PC] Stat Oth 09/07/20 08:58 Ordered Medication Orders Sodium Chloride (Saline Flush) 10 ml FLUSH ASDIRECTED PRN PRN Reason: Keep Vein Open Last Admin: 09/07/20 09:20 Dose: 10 ml Documented by: ALEX Meds: Medications Generic Name Dose Route Start Last Admin Trade Name Freq PRN Reason Stop Dose Admin Sodium Chloride 10 ml 09/07/20 08:58 09/07/20 09:20 Saline Flush FLUSH 10 ml ASDIRECTED PRN Administration Keep Vein Open Discontinued Medications Generic Name Dose Route Start Last Admin Trade Name Freq PRN Reason Stop Dose Admin Fentanyl 50 mcg 09/07/20 09:00 02/03/21 09:19 Sublimaze IVPUSH 09/07/20 09:01 50 mcg ONETIME ONE Administration Cefazolin Sodium/Dextrose 1 gm 50 mls @ 100 mls/hr 09/07/20 08:58 09/07/20 09:17 / Premix IV 09/07/20 09:27 100 mls/hr ONETIME ONE Administration Lidocaine HCl 30 ml 09/07/20 08:59 09/07/20 09:20 Xylocaine-Mpf 1% INJECT 09/07/20 09:00 30 ml ONETIME ONE Administration Ondansetron HCl 4 mg 09/07/20 09:00 09/07/20 09:19 Zofran IV 09/07/20 09:01 4 mg ONETIME ONE Administration - Radiology Interpretation Free Text/Narrative:: [facility] Final Radiology Report Call: [phone] assistance Online chat: [email or web address] Name: MELISSA COLLAZO Age: 65Years M Date: 09/07/2020 SSN: -- : 1955 Study: CR FINGERS THUMB LT FA Requesting Physician: EMBER LORENZO Images: 3 Addl Studies: Provided Clinical History: Left thumb lac./open fracture or dislocation Contrast: Contrast Medium: Contrast Amount: Contrast Method: CONFIDENTIALITY STATEMENT This report is intended only for use by the referring physician, and only in accordance with law. If you received this in error, call [phone]. Page 1 of 1 PROCEDURE INFORMATION: Exam: XR Left Finger(s) Exam date and time: 09/07/2020 9:02 AM Age: 65 years old Clinical indication: Other: Left thumb lac. /open fracture or dislocation TECHNIQUE: Imaging protocol: XR Left fingers. Views: Minimum 2 views. COMPARISON: No relevant prior studies available. FINDINGS: Bones/joints: There is dislocation of the distal phalanx from the proximal phalanx of the left thumb. Irregular bony density at the base of the distal phalanx may represent a small chip fracture. Soft tissues: There is soft tissue swelling appreciated. Vasculature: The vasculature demonstrates moderate atherosclerotic calcification. IMPRESSION: 1. There is dislocation of the distal phalanx from the proximal phalanx of the left thumb. 2. Irregular bony density at the base of the distal phalanx may represent a small chip fracture. Thank you for allowing us to participate in the care of your patient. Dictated and Authenticated by: Lars Sharpe MD 09/07/2020 9:10 AM Central Time ([place] & [place]) Departure - Departure Time of Disposition: 09:44 Disposition: DC/Tfer to Acute Hospital 02 Condition: Fair Clinical Impression: Open dislocation of interphalangeal joint of left thumb Qualifiers: Encounter type: initial encounter Qualified Code(s): S63.125A - Dislocation of interphalangeal joint of left thumb, initial encounter; S61.002A - Unspecified open wound of left thumb without damage to nail, initial encounter - Discharge Information *PRESCRIPTION DRUG MONITORING PROGRAM REVIEWED*: Not Applicable *COPY OF PRESCRIPTION DRUG MONITORING REPORT IN PATIENT KAYLI: Not Applicable Forms: ED Department Discharge, Interfacility Transfer EMTALA Sepsis Event Note (ED) - Focused Exam Vital Signs: Vital Signs Temp Pulse Resp BP Pulse Ox 09/07/20 09:02 98.1 F 89 18 125/60 99 - My Orders Last 24 Hours: My Active Orders 09/07/20 08:58 Peripheral IV Care [RC] . DIRECTED Sodium Chloride 0.9% [Saline Flush] 10 ml FLUSH ASDIRECTED PRN Peripheral IV Insertion Adult [OM.PC] Stat - Assessment/Plan Last 24 Hours: My Active Orders 09/07/20 08:58 Peripheral IV Care [RC] . DIRECTED Sodium Chloride 0.9% [Saline Flush] 10 ml FLUSH ASDIRECTED PRN Peripheral IV Insertion Adult [OM.PC] Stat
[2020-09-07] MEDS ORDERED: Sodium Chloride 0.9% 10 ML Syringe FLUSH PRN (08:58)
[2020-09-07] MEDS ORDERED: ceFAZolin 1 GM in Premix Bag 1 BAG IV ONE (08:58)
[2020-09-07] MEDS ORDERED: Lidocaine 1% 30 ML SDV INJECT ONE (08:59)
[2020-09-07] MEDS ORDERED: fentaNYL 100 MCG/2 ML SDV IVPUSH ONE ×2 (09:00→10:22)
[2020-09-07] MEDS ORDERED: Ondansetron 4 MG/2 ML SDV IV ONE (09:00)
--- NOTE | 2020-09-07 09:10 | CR ---
PROCEDURE INFORMATION: Exam: XR Left Finger(s) Exam date and time: 09/07/2020 9:02 AM Age: 65 years old Clinical indication: Other: Left thumb lac. /open fracture or dislocation TECHNIQUE: Imaging protocol: XR Left fingers. Views: Minimum 2 views. COMPARISON: No relevant prior studies available. FINDINGS: Bones/joints: There is dislocation of the distal phalanx from the proximal phalanx of the left thumb. Irregular bony density at the base of the distal phalanx may represent a small chip fracture. Soft tissues: There is soft tissue swelling appreciated. Vasculature: The vasculature demonstrates moderate atherosclerotic calcification. IMPRESSION: 1. There is dislocation of the distal phalanx from the proximal phalanx of the left thumb. 2. Irregular bony density at the base of the distal phalanx may represent a small chip fracture.
== END 2020-09-07 10:40 ==
LOC: DL.ED 08:48
DX: S63.125A Dislocation of interphalangeal joint of left thumb, initial encounter (principal); E11.9 Type 2 diabetes mellitus without complications; I25.2 Old myocardial infarction; I25.10 Atherosclerotic heart disease of native coronary artery without angina pectoris; K21.9 Gastro-esophageal reflux disease without esophagitis; Z79.4 Long term (current) use of insulin; Z79.899 Other long term (current) drug therapy; W31.89XA Contact with other specified machinery, initial encounter
CPT/HCPCS: 26770; 64450; 73140; 96365; 96375; 96376; 99284; J0690; J2405; J3010; J2001